=== PATIENT | male | born 1985 | race African-American/Black ===

== ENCOUNTER 2017-09-29 09:47 | Emergency (ER) | payer OTHER ==
[~2017-09-29] VITALS: Ht 188 cm; Wt 79.4 kg
[2017-09-29] MEDS ORDERED: PENICILLIN VK500 M1 PO (10:09)
[2017-09-29] MEDS ORDERED: MOBIC15 MG PO (10:15)
== END 2017-09-29 10:25 | disposition home or self-care (01) ==
LOC: ER 09:47
DX: K02.9 Dental caries, unspecified (principal)